=== PATIENT | female | born 2000 | race Asian ===

== ENCOUNTER 2020-02-27 07:43 | Outpatient (CLI) | payer OTHER ==
[2020-02-27 16:33] LABS: #Eosinphils 0.1 10x3/uL (0.0-0.5); #Monocytes 0.5 10x3/uL (0.0-1.1); #Neutrophils 4.5 10x3/uL (1.5-8.4); %Basophils 0.1 % (0.0-2.0); %Eosinophils 0.9 % (0.0-6.0); %Lymphocytes 36.9 % (18.0-47.0); %Monocytes 6.3 % (0.0-10.0); %Neutrophils 55.6 % (40.0-75.0); Hemoglobin 12.5 g/dL (12.0-16.0); Mean Corpuscular HGB CONC 33.8 G/DL (32.0-36.0); Mean Corpuscular Hemoglobin 30.3 PG (27.0-33.0); Mean Corpuscular Volume 89.8 fl (80.0-100.0); Mean Platelet Volume 9.3 fl (7.4-10.4); Platelet Count 370 10x3/uL (130-400); RBC Distribution Width 11.9 % (11.5-14.5); Red Blood Cell (RBC) Count 4.12 10x6/uL (3.90-5.20); White Blood Cell (WBC) Count 8.1 10x3/uL (4.5-11.0)
[2020-02-27 16:46] LABS: BHCG - Serum Negative (NEGATIVE); Pregs Control Background? CLEAR/WHITE (CLR/WHITE); Pregs Control Bar Appear? YES (CONTROL BAR)
[2020-02-28 01:58] LABS: SARS-CoV-2 PCR by NAA Not Detected (NotDetected)
== END 2020-02-27 07:44 | disposition home or self-care (01) ==
LOC: LABBT 07:43
PROVIDERS: ATTEND Orthopaedic Surgery
DX: Z01.812 Encounter for preprocedural laboratory examination (principal); Z20.822 Contact with and (suspected) exposure to COVID-19; S83.281A Other tear of lateral meniscus, current injury, right knee, initial encounter; M25.861 Other specified joint disorders, right knee
CPT/HCPCS: 84703; 85025; 87635; U0003; U0005

== ENCOUNTER 2020-03-03 06:41 | Day surgery (SDC) | payer OTHER ==
[2020-02-28 13:58] VITALS: BMI 30.9
[2020-03-03] MEDS ORDERED: Clindamycin/D5W 600 mg/50 ml Premix Bag ONE (06:51)
[2020-03-03] MEDS ORDERED: EPINEPHrine 1 MG/ML AMP ONE (07:53)
[2020-03-03] MEDS ORDERED: Lidocaine 1% (PF) 30 ML VIAL ONE (07:53)
[2020-03-03] MEDS ORDERED: Bupivacaine 0.25% HCL 30 ML VIAL ONE (07:53)
[2020-03-03] MEDS ORDERED: Fentanyl 100 MCG/2 ML VIAL ONE (07:57)
[2020-03-03] MEDS ORDERED: Ketorolac Tromethamine 30 MG/ML VIAL ONE (09:21)
[2020-03-03] MEDS ORDERED: Dexamethasone 20 MG/5 ML VIAL ONE (09:21)
[2020-03-03] MEDS ORDERED: PROPOFOL 200 MG/20 ML VIAL ONE (09:21)
[2020-03-03] MEDS ORDERED: Lidocaine 1% PF 5 ML VIAL ONE (09:21)
[2020-03-03] MEDS ORDERED: diphenhydrAMINE 50 MG/ML VIAL ONE (09:21)
[2020-03-03] MEDS ORDERED: Ondansetron PF 4 MG/2 ML Vial ONE (09:21)
[2020-03-03] MEDS ORDERED: Ondansetron ODT 4 MG TAB ONE (11:29)
--- NOTE | 2020-03-04 11:20 | OP ---
DATE OF PROCEDURE: 03/03/2020 PREOPERATIVE DIAGNOSIS: Right horizontally oriented radial tear anterior body of lateral meniscus with parameniscal cyst. POSTOPERATIVE DIAGNOSIS: Right horizontally oriented radial tear anterior body of lateral meniscus with parameniscal cyst. PROCEDURES PERFORMED: 1. Right partial lateral meniscectomy. 2. Arthroscopic debridement of parameniscal cyst. APPLICATIONS ENGINEERING MANAGER: None. ANESTHESIA: Raymundo. General with LMA. The patient received 25 cc of 0.25% with epi intra-articularly preprocedure, 17 mL of 1% lidocaine plain postprocedure subcu as well as within the joint. TOURNIQUET TIME: 38 minutes. ANTIBIOTICS: Clindamycin 600. COMPLICATIONS: None. HISTORY OF PRESENT ILLNESS: Ms. Monzon is a pleasant 19-year-old female, who is [employer]. The patient presents with pain with training. The patient states she has had the symptoms for several years. Recent MRI evidence of a radial tear of her lateral meniscus, it was more of bone component. The patient had a parameniscal cyst adjacent. I discussed with her the risks and benefits of a lateral meniscus to include arthroscopic debridement, partial platysmasectomy, possible open meniscal cyst excision. She understood the risks and benefits of the procedure to include pain, scar, bleeding, infection, damage to vital structures, decreased range of motion and strength, need for further surgery despite surgical intervention, damage to vital structures, loss of life or limb, potential risk of blood clots. She understood the risks and benefits and elected to proceed. DESCRIPTION OF PROCEDURE: After time-out, the patient's right lower extremity was prepped and draped in a sterile fashion. Tourniquet was left up to a total of 38 minutes. I placed my anterolateral portal just lateral to the tendon, distal to the pole of patella, placed my medial portal with a spinal needle intra-articularly, then blunt probe to remove the fat pad. There was some bulging that was noted from the parameniscal cyst in my lateral portal. Started my diagnostic scope with ACL, PCL after I debrided some of the fat pad. CL, PCL, looked into the patient's patellofemoral component, looked in the gutters, found no loose bodies, no cartilage defects. Looked medially, saw an intact medial meniscus. No femoral cartilage or tibial defects. Looked laterally, saw a radial component with horizontal cleavage component, a complex tear with anterior horn lateral meniscus. I then moved back to the cyst which is kind of my viewing portal, I ensured that I knew where the root as well as where the meniscocapsular junction was in the anterior horn. I debrided and found what was lobulated fat and cystic fluid, which a picture was taken, was able to express that from the cyst and decompress it. I used my probe as well as my shaver to debride within the cyst to help with its decompression. Being adequately decompressed, I moved back to the lateral meniscus, which I first used a straight biter and a side biter shaver. I had some difficulty with its position. Therefore, I moved back to the medial portal and used the lateral position and then come across shave and side bites cleaning up all lateral meniscus. I ensured there were no other signs of damage, felt that I had adequately debrided the meniscus to stable. I could not find any protrusion of the segments, so I looked back again at the cyst from the viewing angle, made sure that was decompressed completely and made sure that the capsular insertion as well as meniscal ligament as well as the root were all intact lateral meniscus. Being happy with my debridement, I used one spinal needle, tried to localize laterally. We could not get any expression. I felt like I had adequately decompressed the cyst as well as the debrided my meniscus. I washed, I injected lidocaine in the subcu as well as in the joint I injected Marcaine before the procedure, closed my portal sites. The patient will weightbear as tolerated. She will be discharged home with pain medications, hydrocodone, [place], and ibuprofen as needed for pain. She will follow up me in about 10 to 14 days. Job ID: [id number]
== END 2020-03-03 11:58 | disposition home or self-care (01) ==
LOC: SDC 06:41
PROVIDERS: ATTEND Orthopaedic Surgery
PROC: 0SBC4ZZ Excision of Right Knee Joint, Percutaneous Endoscopic Approach (ICD-10-PCS; principal; 2020-03-03)
DX: S83.281A Other tear of lateral meniscus, current injury, right knee, initial encounter (principal); M25.861 Other specified joint disorders, right knee; F32.9 Major depressive disorder, single episode, unspecified; Z79.899 Other long term (current) drug therapy; Z88.0 Allergy status to penicillin
CPT/HCPCS: J0171; J1100; J1200; J1885; J2001; J2405; J2704; J3010; J3490; Q0162; S0020